=== PATIENT | female | born 1965 | race Caucasian/White ===

== ENCOUNTER 2020-03-13 10:03 | Day surgery (SDC) | payer BC ==
[~2020-03-13] VITALS: Ht 170.2 cm; Wt 71.7 kg
[~2020-03-13 10:03] MED LIST: ACET120S; HYDSUL200 PO; SPACER; UNISOM25 MG
== END 2020-03-13 11:46 | disposition home or self-care (01) ==
LOC: ORSCSDS 10:03
PROVIDERS: Student in an Organized Health Care Education/Training Program
PROC: 0DB88ZX Excision of Small Intestine, Via Natural or Artificial Opening Endoscopic, Diagnostic (ICD-10-PCS; principal; 2020-03-13 11:15)
PROC: 0DB68ZX Excision of Stomach, Via Natural or Artificial Opening Endoscopic, Diagnostic (ICD-10-PCS; principal; 2020-03-13 11:15)
DX: R10.9 Unspecified abdominal pain (principal); R14.0 Abdominal distension (gaseous); R11.0 Nausea; K29.70 Gastritis, unspecified, without bleeding; K44.9 Diaphragmatic hernia without obstruction or gangrene; L93.0 Discoid lupus erythematosus; J45.909 Unspecified asthma, uncomplicated; E78.00 Pure hypercholesterolemia, unspecified; F17.210 Nicotine dependence, cigarettes, uncomplicated; Z79.899 Other long term (current) drug therapy
CPT/HCPCS: 88305; 88342; J2704; J7120

== ENCOUNTER 2022-08-26 14:30 | Observation (INO) | payer BC ==
[~2022-08-26] VITALS: Ht 167.6 cm; Wt 69.0 kg
[2022-08-26] VITALS (9 sets, daily range): BP systolic 92–132; BP diastolic 65–109
[2022-08-26 16:00] LABS: Hematocrit 38.7 % (33.0-51.0); Hemoglobin 13.5 g/dL (11.5-16.0); Mean Corpuscular HGB 31.3 pg (26.0-34.0); Mean Corpuscular HGB Conc 34.9 g/dL (31.5-36.5); Mean Corpuscular Volume 90 fL (80-100); Platelet Count 421 K/mm3 (150-400); RDW Coefficient Variation 12.9 % (11.7-14.2); RDW Standard Deviation 42.5 fL (35.1-46.3); Red Blood Cell Count 4.32 M/mm3 (3.80-5.20); White Blood Cell Count 6.25 K/mm3 (4.00-11.30)
[2022-08-26 16:22] LABS: BASOPHILS PERCENT MAN 0 % (0-2); EOSINOPHILS ABSOLUTE MAN 0.25 K/mm3 (0.00-0.68); EOSINOPHILS PERCENT MAN 4 % (0-6); LYMPHOCYTES ABSOLUTE MAN 2.43 K/mm3 (0.84-5.20); LYMPHOCYTES PERCENT MAN 39 % (21-46); MONOCYTES ABSOLUTE MAN 0.31 K/mm3 (0.16-1.47); MONOCYTES PERCENT MAN 5 % (4-13); NEUTROPHILS ABSOLUTE MAN 3.25 K/mm3 (1.96-9.15); SEG NEUTROPHILS PERCENT MAN 52 % (41-73); TOTAL CELLS COUNTED 100
[2022-08-26 16:27] LABS: Albumin, Blood 4.3 g/dL (3.4-5.0); Albumin/Globulin Ratio 1.2 (0.8-1.8); Bilirubin, Total 0.3 mg/dL (0.1-1.0); Bun/Creatinine Ratio 11.5 (12.0-20.0); Calcium, Blood 9.8 mg/dL (8.5-10.1); Creatinine, Blood 0.78 mg/dL (0.40-1.00); Globulin, Blood 3.6 g/dL (2.2-4.0); Potassium, Blood 3.7 mmol/L (3.5-5.5); Total Protein, Blood 7.9 g/dL (6.4-8.2)
--- NOTE | 2022-08-26 19:30 | NUR ---
ARRIVAL PT ARRIVED FROM PACU A/OX4, ON RA, IN NO DISTRESS. PT WAS ABLE TO STAND AND TRANSFER TO ROOM BED WITH MINIMAL TEST AUTOMATION ARCHITECT. X3 LAP SITES ARE C/D/I WITH GAUZE AND TEGADERM. VSS, PT REPORTS NO NAUSEA. PLAN TO MEDICATE FOR PAIN AND OFFER CLEAR LIQUIDS WHEN PT IS READY. BED IN LOW, CALL LIGHT IN REACH
[2022-08-27 00:31] VITALS: BP 129/76
--- NOTE | 2022-08-27 04:50 | NUR ---
SHIFT SUMMARY POD1 LAP APPY. X3 LAP SITES ARE C/D/I. VSS. PT AMBULATING TO BATHROOM AND VOIDING W/O DIFFICULTY. TOLLERATING MINIMAL PO INTAKE W/O N/V. PAIN MANAGED WITH NORCO AND ZOFRAN FOR PREVENTATIVE NAUSEA TX. NO ACUTE EVENTS T/O THE NIGHT. PLAN FOR PT TO CONTINUE IV ABX AND POSSIBLY D/C HOME TODAY. THE PATIENT IS CURRENTLY SLEEPING, IN NO DISTRESS, CALL LIGHT IN REACH
[2022-08-27 05:02] VITALS: BP 122/69
[2022-08-27 07:27] VITALS: BP 115/66
[2022-08-27] MEDS ORDERED: HYDROCODONE-AC1 EA10 PO (09:13)
--- NOTE | 2022-08-27 10:53 | NUR ---
Pt. is awake in bed and welcomes my visit. Pt. is pleasant and verbalizes her anticipation to be discharged soon. Facilitate a short life review and establish rapport. Pt. displays evidence of engagement and determination. Prayed with Pt. Pt. verbalizes gratitude for the spiritual care visit.
--- NOTE | 2022-08-27 11:04 | NUR ---
DISCHARGE: PACKET PRINTED AND PT EDUCATED. PT VERBALIZED UNDERSTANDING. GIVEN NARCO SCRIPT. LEFT UNIT AT 1105 VIA WHEELCHAIR WITH JANELLE MEZA
== END 2022-08-27 11:09 | disposition home or self-care (01) ==
LOC: ER 14:30 → SURS 16:52
PROVIDERS: Physician Assistant; ADMIT Surgery
DX: K35.80 Unspecified acute appendicitis (principal); F17.210 Nicotine dependence, cigarettes, uncomplicated; Z88.5 Allergy status to narcotic agent; Z79.899 Other long term (current) drug therapy
CPT/HCPCS: 80053; 85025; 88304; 96361; 96374-59; 96375; 99285-25; A9270; J0694; J1100; J1885; J2250; J2405; J2704; J2795; J3010; J7120